=== PATIENT | female | born 1950 | race Caucasian/White ===

== ENCOUNTER → 2020-01-17 | Outpatient (CLI) | payer MEDICARE | LOC: M.RAD 01-04 10:04 | PROVIDERS: ATTEND Registered Nurse Diabetes Educator | DX: Z12.31 Encounter for screening mammogram for malignant neoplasm of breast (principal); N63.21 Unspecified lump in the left breast, upper outer quadrant; Z78.0 Asymptomatic menopausal state ==

== ENCOUNTER → 2020-01-23 | Outpatient (CLI) | payer MEDICARE | LOC: M.ULTRA 16:00 | PROVIDERS: ATTEND Registered Nurse Diabetes Educator | DX: N63.21 Unspecified lump in the left breast, upper outer quadrant (principal) ==

== ENCOUNTER → 2020-01-27 | Outpatient (CLI) | payer MEDICARE ==
--- NOTE | 2020-01-30 17:06 | PATH ---
[address] [address] PATHOLOGY RPT PROCEDURE Name: DEEPALI ONEIL Room: [facility] [place]#: [id number] Admission: 01/27/20 Date of : 54 Discharge: Report #: [id number] Path Case #: [id number] L[facility] Accession Number: [id number] . 01 Material submitted: . breast - LEFT BREAST MASS, 1300, 4CMFN. Modifiers: left, 1:00 . 01 Clinical history: . US/MAMMOTOME 0.63 X 0.79 X 0.52 CM . 02 Diagnosis: Left breast mass, 1300, 4 cm from nipple, image-guided core biopsies: - Benign breast tissue with papilloma showing usual ductal epithelial hyperplasia, prominent cystic apocrine change and luminal calcification, negative for atypia. See comment. (SARAY:nany; 01/30/2020) [facility] 01/30/2020 1135 Local . 02 Comment: A ductal papilloma spanning 2 mm is present in A3 and in A1 is a partially collapsed apocrine cyst thought to have spanned at least [address] Sudha Gregorio, who agrees with the diagnosis. (SARAY:[facility] 01/30/2020) . 02 Electronically signed: . Gucci Sylvester MD, Pathologist NPI- [id number] . 01 Gross description: . The specimen is received in formalin, labeled "Deepali Oneil, left breast biopsy 1:00 4 cm from nipple". Received are multiple needle cores of fibrofatty tissue measuring 2.2 x 1.9 x 0.3 cm in aggregate dimensions. The specimen is submitted entirely in cassettes A1 through A3. The cold ischemic time is 4 minutes. The total formalin fixation time is 11 hours and 46 minutes. ([facility]AA; 01/27/2020) QAC/QAC 01/27/2020 1648 Local . 02 Pathologist provided ICD-10: D24.2, N62 . 02 CPT . 375770 Specimen Comment: A courtesy copy of this report has been sent to [phone] Specimen Comment: [phone] Specimen Comment: Report sent to / [place] [address] PATHOLOGY RPT PROCEDURE Name: DEEPALI ONEIL Room: [facility]#: [id number] Admission: 01/27/20 Date of : 54 Discharge: Report #: [id number] Path Case #: [id number] Performed at: 01 [facility] [place] [address], [place], [place] [id number] MD Mike Rivas MD Phone: [phone] Performed at: 02 [facility] [address], [place], [place] [id number] MD Gucci Sylvester MD Phone: [phone]
== END | disposition home or self-care (01) ==
LOC: M.ULTRA 08:21
PROVIDERS: ATTEND Registered Nurse Diabetes Educator
DX: D24.2 Benign neoplasm of left breast (principal); N62 Hypertrophy of breast; R92.1 Mammographic calcification found on diagnostic imaging of breast; N60.82 Other benign mammary dysplasias of left breast

== ENCOUNTER → 2020-03-01 | Outpatient (CLI) | payer MEDICARE ==
[~2020-03-01] MED LIST: CHLORTHALIDONE25 MG PO; EFFEXOR XR150 MG PO; FLAXSEED PO; LIPITOR 20 MG T20 M1 PO; OXYCODONE HCL 55 MG PO; SUPER THERAVIT1 EACH PO; VITAMIN C500 M2 PO; VITAMIN D3250 MC1 PO; iron PO
== END | disposition home or self-care (01) ==
LOC: M.ULTRA 11:30
PROVIDERS: ATTEND Surgery
DX: D24.2 Benign neoplasm of left breast (principal); Z98.890 Other specified postprocedural states; Z79.899 Other long term (current) drug therapy

== ENCOUNTER → 2020-03-08 | Outpatient (CLI) | payer MEDICARE | LOC: M.LAB 15:38 | PROVIDERS: ATTEND Surgery | DX: Z01.812 Encounter for preprocedural laboratory examination (principal); Z20.828 Contact with and (suspected) exposure to other viral communicable diseases ==

== ENCOUNTER → 2020-03-13 | Day surgery (SDC) | payer MEDICARE ==
[2020-03-13 10:30] LABS: HEMATOCRIT 40.1 % (37.0-47.0); HEMOGLOBIN 13.7 gm/dL (12.0-15.0); MCH 29.2 pg (26.0-34.0); MCHC 34.1 g/dL (28.0-37.0); MCV 85.6 fL (80.0-100.0); MPV 7.4 fl. (7.2-11.1); RBC 4.68 mil/uL (4.20-5.00); RDW-CV 14.1 % (10.5-14.5)
[2020-03-13 10:44] LABS: CALCIUM 8.8 mg/dL (8.5-10.1); CREATININE 0.9 mg/dL (0.6-1.3); POTASSIUM 3.4 mmol/L (3.5-5.1)
--- NOTE | 2020-03-13 15:18 | EKG ---
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: Joel [place] : 1950 Requested By: Kary Otto Order Number: [id number] Claire MD: Kulwinder Cedeno Measurements Intervals [place] Rate: 69 P: 58 VA: 164 QRS: -18 QRSD: 97 T: -7 QT: 431 QTc: 462 Interpretive Statements Sinus rhythm Probable left atrial enlargement Left ventricular hypertrophy Baseline wander in lead(s) V6 No previous ECG available for comparison Electronically Signed On 03-13-2020 15:17:54 CDT by Kulwinder Cedeno [email or web address] <ELECTRONICALLY SIGNED> By: Kulwinder Cedeno MD, [facility] 03/13/20 1517 1030 1030 Kulwinder Cedeno MD, [facility] /EPI
--- NOTE | 2020-03-16 15:07 | PATH ---
[address] [address] PATHOLOGY RPT PROCEDURE Name: DEEPALI ONEIL [id number] Admission: 03/13/20 Date of : 54 Discharge: Report #: [id number] Path Case #: [id number] L[facility] Accession Number: [id number] . 01 Material submitted: . PART A: breast - LEFT BREAST LUMPECTOMY (SHORT SUPERIOR, LONG LATERAL). Modifiers: left PART B: shoulder - RIGHT SHOULDER LIPOMA. Modifiers: right . 01 Clinical history: . LEFT BREAST DUCTAL PAPILOMA/LIPOMA OTHER SPECIFIED SITE . 02 Diagnosis: A. Left breast lumpectomy: - Benign breast tissue with focal atypical ductal hyperplasia, multiple ductal papillomas, cystic apocrine change and luminal calcifications and prior biopsy site including localization seed and U-shaped biopsy clip. See comment. . B. Right shoulder lipoma: - Consistent with lipoma. LBQ 03/16/2020 1156 Local . 02 Comment: Focal atypical ductal hyperplasia is seen in A8 and A10 near the posterolateral aspect of the specimen. A8, A10 and A15 reviewed with Dr. Sudha Gregorio who agrees with the diagnosis. (SARAY/db; 03/16/2020) . 02 Electronically signed: . Gucci Sylvester MD, Pathologist NPI- [id number] . 01 Gross description: . A. Received in formalin labeled "Deepali Oneil, left breast lumpectomy short superior long lateral" is an oriented breast lumpectomy specimen weighing 20 g and measuring 5.1 cm from superior to inferior, 5.1 cm from medial to lateral, and 1.8 cm from anterior to posterior. The specimen is inked as follows: Superior-red, inferior-blue, lateral-orange, medial-yellow, anterior-green, posterior-black. The specimen is serially sectioned from superior to inferior into 11 slices. A localization seed is located in slices 8-9 and a U shaped biopsy clip is located in slice 9. A biopsy site is identified in slices 8-11, measuring 1.5 x 1.2 x 1.1 cm. This area is located to the margins as follows: 2.9 cm superior, 0.9 cm to anterior, 1.0 cm to lateral, 1.0 cm to medial, 0.1 cm to inferior, and grossly abuts posterior. The uninvolved cut surfaces are yellow-mcguire and lobulated with 10% dense white fibrous tissue. A mass is not definitively identified. The specimen is submitted entirely as follows: A1-A2 slice 1 [place] [address] PATHOLOGY RPT PROCEDURE Name: LIZET ONEILKal Yang [id number] Admission: 03/13/20 Date of : 54 Discharge: Report #: [id number] Path Case #: [id number] superior margin, perpendicular sections A3 slice 2 A4-A5 slice 3 A6-A7 slice 4 A8-A9 slice 5 A10-A11 slice 6 A12-A13 slice 7 A14-A15 slice 8 A16-A17 slice 9 A18-A19 slice 10 A20-A21 slice 11, inferior margin, perpendicular sections . The specimen is removed from the patient at 1215 and placed in formalin at 1245 on March 13, 2020. The specimen is removed from formalin at 1850 on March 14, 2020. . B. Received in formalin labeled "Deepali Oneil, right shoulder lipoma" is a 7.0 x 5.8 x 2.7 cm aggregate of yellow-mcguire lobulated fibroadipose tissue fragments. The specimen is sectioned to reveal a yellow-mcguire homogeneous cut surface without hemorrhage or necrosis. Recenterer sections are submitted in cassettes B1-B4. ([facility] 03/13/2020) [facility] 03/16/2020 1151 Local . 02 Pathologist provided ICD-10: N62, D24.2, D17.21 . 02 CPT . 987715, 153178 Specimen Comment: A courtesy copy of this report has been sent to [phone] Specimen Comment: [phone] Specimen Comment: Report sent to / DR RINCON Performed at: 01 [facility] [id number] [facility] [address], [place], [place] [id number] MD Mike Rivas MD Phone: [phone] Performed at: 02 [facility] [address], [place], [place] [id number] MD Gucci Sylvester MD Phone: [phone]
--- NOTE | 2020-03-17 09:35 | OP ---
[address] [address] OPERATIVE REPORT Name: IVANIA SCHRADER Room: [employer].#: [id number] Admission: 03/13/20 Attend Phys: Kary Otto DO Discharge: Date of : 54 Report #: [id number] THIS REPORT FOR: //name// cc: Arline Shah,Arline BALLARD ~ CC: Kary Shah PETROLEUM INSPECTOR SUPERVISOR DICTATED BY: Khang Corral DO DATE OF SERVICE: 03/13/2020 PREOPERATIVE DIAGNOSES: Left breast papilloma, right shoulder lipoma. POSTOPERATIVE DIAGNOSES: Left breast papilloma, right shoulder lipoma. SURGEON: Kary Otto DO UNION STEWARD: Khang Corral, PGY5; Marcus Bowman, PGY1; and Tashi Bonilla, MS4. OPERATION PERFORMED: Right shoulder lipoma excision and left breast lumpectomy. ANESTHESIA: General, local. ESTIMATED BLOOD LOSS: 20 mL. SPECIMEN: Right shoulder lipoma that was 4 x 4 x 2 cm in size with a 3 cm incision in the left breast lumpectomy. COMPLICATIONS: None. INDICATIONS: The patient is a 70-year-old female who presented with an image detected left breast mass that was found on biopsy to be a papilloma. The mass was clipped during biopsy. She subsequently went RF seed localization. The patient was counseled on the risks and benefits of lumpectomy with risks including, but not limited to bleeding, infection and injury to surrounding structures. She understood and she decided to proceed with surgery. DESCRIPTION OF PROCEDURE: After informed consent was obtained, the patient was brought to the operating room and placed in supine position. SCDs were on and running. Preoperative antibiotics were given. General anesthesia was administered with an LMA. The patient was prepped and draped in the usual sterile fashion at the right shoulder and the left breast. Timeout was performed to ensure proper patient and procedure. The right shoulder lipoma was injected with 0.5% Marcaine. A longitudinal [place] [address] OPERATIVE REPORT Name: IVANIA SCHRADER Room: [facility]#: [id number] Admission: 03/13/20 Attend Phys: Kary Otto DO Discharge: Date of : 54 Report #: [id number] was used with a #15 blade approximately 3 cm in length. Dissection was carried through the dermis using cautery. The mass was tracked both anterior and posteriorly. Subcutaneous flaps were developed using cautery. The fatty mass was identified and delivered from the wound. Cautery and blunt dissection were used to circumferentially dissect the mass free from the surrounding tissues. The lipoma had a finger that tracked significantly posteriorly. This was completely dissected out. Once completely free, the specimen that was in 3 pieces, was measured together to be about 4 x 4 x 2 cm. The incision was 3 cm. The cavity was inspected and palpated. There was no further lipomatous mass in the cavity, it was irrigated and hemostatic. The wound was closed in layered fashion using 3-0 Vicryl, 4-0 Monocryl and dressed with Dermabond. The left breast was then inspected using the RF localizer scanner and was detected. A lateral periareolar incision was made with a #15 blade. Dissection was carried through the dermis and through the subcutaneous tissue using cautery. The RF localizer was used to guide the extent of the dissection. Once within proximity of the seed and therefore the clip and the mass, cautery was used to circumferentially dissect a lumpectomy specimen around with care to get about 2 cm deep to the mass to ensure an adequate posterior margin. Once this was complete and the localizer ensure that the tag was within the specimen that was grasped with an Allis, the posterior aspect was transected using cautery. Orientation was maintained. A short stitch was placed superior on the specimen and a long stitch lateral. The mass was then placed within a transplant container and sent to Radiology for mammographic confirmation of the clip and seed, which were both present in the specimen. The wound was then irrigated, suctioned and closed in layered fashion using 3-0 Vicryl, 4-0 Monocryl. Wound was cleansed and dressed with Dermabond. All counts were correct, sponge and needle. The patient was emerged from anesthesia. A pressure dressing was placed over the right shoulder to prevent seroma formation. The patient was transferred to the PACU in stable condition. <ELECTRONICALLY SIGNED> By: Kary Otto DO 03/17/20 0935 1313 1330Chmarianna Otto DO /leah
== END | disposition home or self-care (01) ==
LOC: M.SUR 08:17
PROVIDERS: ATTEND Surgery
DX: D24.2 Benign neoplasm of left breast (principal); N62 Hypertrophy of breast; N60.82 Other benign mammary dysplasias of left breast; R92.1 Mammographic calcification found on diagnostic imaging of breast; D17.21 Benign lipomatous neoplasm of skin and subcutaneous tissue of right arm

== ENCOUNTER → 2020-11-01 | Outpatient (CLI) | payer MEDICARE | LOC: M.RAD 09-19 14:00 | PROVIDERS: ATTEND Surgery | DX: N60.12 Diffuse cystic mastopathy of left breast (principal) ==